=== PATIENT | female | born 1965 | race Caucasian/White ===

== ENCOUNTER 2016-07-17 19:09 | Emergency (ER) | payer OTHER ==
[~2016-07-17] VITALS: Ht 170.2 cm; Wt 114.1 kg
[~2016-07-17 19:09] MED LIST: AMOXICILLIN 50500 MG PO; ASPIRIN 81M81 MG/TA2 PO; ATARAX 25MG25 MG/TAB PO; BUDEPRION XL150 MG PO; LEXAPRO 10MG10 MG PO; LIPITOR 10MG10 MG PO; MULTIPLE VITAMI1 CAP PO; PREDNISONE20 MG PO; RITE AID KRILL500 MG PO; VALIUM 5MG T5 MG/TAB PO; ZITHROMAX TRI-500 MG PO
[2016-07-17 19:22] VITALS: BP 173/88; TEMP 98.5
[2016-07-17] MEDS ORDERED: ZOCOR 40MG40 MG PO (20:04)
[2016-07-17] MEDS ORDERED: ZYRTEC 10MG10 MG PO (20:04)
[2016-07-17 20:20] LABS: INFLUENZA B NEGATIVE
[2016-07-17] MEDS ORDERED: ZITHROMAX 250M250 MG PO (20:42)
[2016-07-17 20:51] VITALS: PULSE 73
== END 2016-07-17 20:51 | disposition home or self-care (01) ==
LOC: COL.ER 19:09
PROVIDERS: Nurse Practitioner
DX: J20.9 Acute bronchitis, unspecified (principal); F17.210 Nicotine dependence, cigarettes, uncomplicated

== ENCOUNTER 2016-08-05 13:28 | Emergency (ER) | payer OTHER ==
[~2016-08-05] VITALS: Ht 170.2 cm; Wt 112.3 kg
[~2016-08-05 13:28] MED LIST changes: +ZITHROMAX 250M250 MG PO; +ZOCOR 40MG40 MG PO; +ZYRTEC 10MG10 MG PO
[2016-08-05 13:31] VITALS: BP 172/91; PULSE 86; TEMP 98.1
== END 2016-08-05 15:07 | disposition home or self-care (01) ==
LOC: COL.ER 13:28
DX: S29.012A Strain of muscle and tendon of back wall of thorax, initial encounter (principal); W51.XXXA Accidental striking against or bumped into by another person, initial encounter

== ENCOUNTER → 2017-03-25 | Outpatient (CLI) | payer OTHER | LOC: MC.RAD 14:46 | DX: Z12.31 Encounter for screening mammogram for malignant neoplasm of breast (principal) ==

== ENCOUNTER → 2018-04-11 | Outpatient (CLI) | payer OTHER | LOC: MC.RAD 03-31 09:00 | DX: Z12.31 Encounter for screening mammogram for malignant neoplasm of breast (principal) ==

== ENCOUNTER → 2019-05-15 | Outpatient (CLI) | payer OTHER | LOC: MC.RAD 15:54 | DX: Z12.31 Encounter for screening mammogram for malignant neoplasm of breast (principal) ==

== ENCOUNTER 2019-07-14 13:31 | Observation (INO) | payer OTHER ==
[~2019-07-14] VITALS: Ht 170.2 cm; Wt 120.0 kg
[2019-07-14 14:47] LABS: BASO % 0.4 % (0.0-2.0); EOS # 0.2 (0.0-0.7); GRAN # 6.1 (1.4-6.5); GRAN % 65.8 % (42.2-75.2); HEMATOCRIT 46.3 % (37.0-47.0); HEMOGLOBIN 15.4 g/dl (12.5-16.0); LYMPH # 2.5 (1.2-3.4); LYMPH % 26.7 % (20.0-51.0); MEAN CELL VOLUME 85 fl (80.0-100.0); MEAN CORPUSCULAR HEMOGLOBIN 28 pg (27.0-31.0); MEAN CORPUSCULAR HGB CONC 33 g/dl (33.0-37.0); MEAN PLATELET VOLUME 9.8 fl (7.4-10.4); MONO # 0.5 (0.1-0.6); MONO % 4.9 % (1.7-9.3); PLATELET COUNT 250 K/mm3 (130-400); RED BLOOD COUNT 5.43 M/mm3 (4.10-5.30); REDCELL DISTRIBUTION WIDTH-CV 12.4 % (11.5-14.5)
[2019-07-14 14:58] LABS: INR 0.9 (0.8-3.0); PROTHROMBIN TIME 10.8 SECONDS (9.7-12.8)
[2019-07-14 14:59] LABS: ALANINE AMINOTRANSFERASE 24 U/L (9-52); ALBUMIN 4.5 gm/dL (3.5-5.0); ALKALINE PHOSPHATASE 75 U/L (50-136); ANION GAP 9 mmol/L (7-16); AST,SGOT 25 U/L (15-37); BILIRUBIN,TOTAL 0.5 mg/dL (0.0-1.0); BLOOD UREA NITROGEN 18 mg/dL (7-17); C-REACTIVE PROTEIN 0.6 mg/dL (0.0-0.9); CALCIUM 9.7 mg/dL (8.4-10.2); CARBON DIOXIDE 27 mmol/L (22-30); CHLORIDE 103 mmol/L (98-107); CREATININE, serum 0.68 (0.52-1.25); GLUCOSE 123 mg/dL (74-106); LIPASE 97 U/L (23-300); POTASSIUM 4.2 mmol/L (3.4-5.0); SODIUM 139 mmol/L (137-145); TOTAL PROTEIN 7.5 gm/dL (6.4-8.2)
[2019-07-14 15:01] LABS: PARTIAL THROMBOPLASTIN TIME 26.2 SECONDS (26.0-37.0)
[2019-07-14 15:24] LABS: TROPONIN-I < 0.012 ng/mL (0.000-0.035)
[2019-07-14 15:33] LABS: D-DIMER < 200.00 ng/mLDDu (200-230)
[2019-07-14 17:46] VITALS: BP 128/72; PULSE 69; TEMP 98.1
--- NOTE | 2019-07-14 18:32 | NUR ---
Pt up to room 351 w/ family at bedside. Meds, allergies, pharmacy and admission all completed. Pt is A&O, independent in room, on room air, tele. Pt has RAC INT IV that flushes w/o complications. Pt denies dizziness, chest pain, N/V/D, lightheadedness at this time. Hospitalist aware of pt arrival to floor. Pt states she doesn't take any home meds at this time. No other concerns noted at this time.
--- NOTE | 2019-07-14 19:10 | NUR ---
Received report from Kathryn. Patient is awake, lying on bed. Patient denies any pain. Kathryn informed patient that she will start IVF, NS at 75ml/hr. Call light within reach.
[2019-07-14 19:32] VITALS: BP 135/70; PULSE 62; TEMP 98.2
[2019-07-14 23:52] VITALS: BP 141/97; PULSE 73; TEMP 97.8
[2019-07-15 04:30] VITALS: BP 151/61; PULSE 64; TEMP 98.6
--- NOTE | 2019-07-15 06:16 | NUR ---
Patient has an uneventful night. She denies any pain for the whole shift. Will endorse patient to day shift nurse.
[2019-07-15 07:38] VITALS: BP 138/74; PULSE 66; TEMP 98.2
[2019-07-15 08:39] LABS: ANION GAP 8 mmol/L (7-16); BLOOD UREA NITROGEN 14 mg/dL (7-17); CALCIUM 9.1 mg/dL (8.4-10.2); CARBON DIOXIDE 25 mmol/L (22-30); CHLORIDE 109 mmol/L (98-107); CHOLESTEROL 188 mg/dL (120-200); CHOLESTEROL RISK RATIO 4.4; CREATININE, serum 0.63 (0.52-1.25); GLUCOSE 106 mg/dL (74-106); HDL CHOLESTEROL 42 mg/dL; LDL CHOLESTEROL 127 mg/dL; POTASSIUM 4.3 mmol/L (3.4-5.0); SODIUM 141 mmol/L (137-145); TRIGLYCERIDE 93 mg/dL
[2019-07-15 08:56] LABS: TROPONIN-I < 0.012 ng/mL (0.000-0.035)
--- NOTE | 2019-07-15 09:27 | NUR ---
Patient lives at home with her (Manas Noland [phone]) in [place], [place] and plans to return home upon recovery. Patient is independent with daily living activities and has no anticipated needs for durable medical equipment at this time. Patient's primary care physician is Tawana Gupta, her [facility] is [facility], and she does not have advance directives for healthcare completed at this time. Patient is a full-time Bilingual Hr Generalist at a local [employer] and has been a smoker since she was 12 years old. No further needs at this time and social services manager will follow as needed.
--- NOTE | 2019-07-15 11:18 | NUR ---
Patient sitting up in chair upon assessment. Denies any pain or discomfort at this time. States plan is for her to go home today. Confirmed discharge with Dr. Garcia who put discharge order in. Tele leads and IV removed as IV was irritating to patient. No further questions or concerns from patient at this time.
--- NOTE | 2019-07-15 12:11 | NUR ---
Patient discharged to home accompanied by her . All discharge instructions reviewed. Patient had ECHO completed this morning that will be reviewed with Dr. Fagan outpatient. Patient has his office number to ensure appointment is made. Patient will follow up with PCP in 1 week. Patient has no home medications and is not going home on any new medications. Patient and have no questions regarding discharge at this time. Patient walked out by this communications writer.
== END 2019-07-15 12:13 | disposition home or self-care (01) ==
LOC: COL.ER 13:31 → MEDICAL 15:51
PROVIDERS: Emergency Medicine; ADMIT Hospitalist
DX: R55 Syncope and collapse (principal); E78.5 Hyperlipidemia, unspecified; I10 Essential (primary) hypertension; E66.01 Morbid (severe) obesity due to excess calories; F17.210 Nicotine dependence, cigarettes, uncomplicated; R73.03 Prediabetes; Z88.1 Allergy status to other antibiotic agents; Z88.6 Allergy status to analgesic agent
CPT/HCPCS: G0378; J1650; J7030

== ENCOUNTER → 2020-02-15 | Outpatient (CLI) | payer OTHER ==
[~2020-02-15] VITALS: Ht 170.2 cm; Wt 123.0 kg
[~2020-02-15] MED LIST changes: +CLARITIN 1010 MG/TAB PO; +MASON NATURAL S1 CAP PO; +OMEGA-3 1000 MG1 CAP PO; +ZOCOR 10MG10 MG PO
[2020-02-15 13:22] VITALS: BP 172/96; PULSE 79
== END ==
LOC: COL.RAD 02-12 09:00
DX: E04.1 Nontoxic single thyroid nodule (principal)

== ENCOUNTER → 2020-06-03 | Outpatient (CLI) | payer OTHER | LOC: MC.RAD 05-16 07:00 | DX: Z12.31 Encounter for screening mammogram for malignant neoplasm of breast (principal) ==

== ENCOUNTER 2020-10-26 09:58 | Emergency (ER) | payer OTHER ==
[~2020-10-26] VITALS: Ht 170.2 cm; Wt 124.5 kg
[2020-10-26 10:04] VITALS: TEMP 98.4
[2020-10-26 11:55] VITALS: BP 148/87; PULSE 80
== END 2020-10-26 12:00 | disposition home or self-care (01) ==
LOC: COL.ER 09:58
DX: M25.511 Pain in right shoulder (principal); E78.5 Hyperlipidemia, unspecified; E66.01 Morbid (severe) obesity due to excess calories; F17.210 Nicotine dependence, cigarettes, uncomplicated; Z68.41 Body mass index [BMI] 40.0-44.9, adult
CPT/HCPCS: J1885; J2360

== ENCOUNTER → 2021-06-02 | Outpatient (CLI) | payer OTHER | LOC: COL.RAD 05-26 13:30 | DX: Z12.2 Encounter for screening for malignant neoplasm of respiratory organs (principal); R91.8 Other nonspecific abnormal finding of lung field; Z72.0 Tobacco use ==

== ENCOUNTER → 2021-06-23 | Outpatient (CLI) | payer OTHER | LOC: MC.RAD 10:24 | DX: Z12.31 Encounter for screening mammogram for malignant neoplasm of breast (principal) ==

== ENCOUNTER 2022-02-27 22:15 | Emergency (ER) | payer OTHER ==
[~2022-02-27] VITALS: Ht 172.7 cm; Wt 122.7 kg
[2022-02-27] MEDS ORDERED: NORCO 325 MG-51 TAB PO (23:33)
[2022-02-27 23:42] VITALS: BP 156/78; PULSE 85
== END 2022-02-27 23:42 | disposition home or self-care (01) ==
LOC: COL.ER 22:15
DX: S49.91XA Unspecified injury of right shoulder and upper arm, initial encounter (principal); F17.210 Nicotine dependence, cigarettes, uncomplicated; X58.XXXA Exposure to other specified factors, initial encounter

== ENCOUNTER → 2022-07-29 | Outpatient (CLI) | payer OTHER ==
[~2022-07-29] MED LIST changes: +NORCO 325 MG-51 TAB PO
== END ==
LOC: MC.RAD 10:34
DX: Z12.31 Encounter for screening mammogram for malignant neoplasm of breast (principal)

== ENCOUNTER → 2023-08-24 | Outpatient (CLI) | payer OTHER | LOC: MC.RAD 12:52 | DX: Z12.31 Encounter for screening mammogram for malignant neoplasm of breast (principal) ==

== ENCOUNTER → 2023-09-26 | Outpatient (CLI) | payer OTHER | LOC: COL.RAD 08:45 | DX: Z12.2 Encounter for screening for malignant neoplasm of respiratory organs (principal); Z87.891 Personal history of nicotine dependence ==

== ENCOUNTER → 2023-10-04 | Outpatient (CLI) | payer OTHER ==
[~2023-10-04] MED LIST changes: +Albuterol 0.083% Neb Soln 2.5 MG/3 ML UD IH ONE; +Methacholine Vial A (Clear Label Base-Cntrl) IH ONE; +Methacholine Vial B (Red Label) 0.0625 MG/ML 3 ML VIAL.NEB IH ONE; +Methacholine Vial C (Orange Label) 0.25 MG/ML 3 ML VIAL.NEB IH ONE; +Methacholine Vial D (Yellow Label) 1 MG/ML 3 ML VIAL.NEB IH ONE; +Methacholine Vial E (Green Label) 4 MG/ML 3 ML VIAL.NEB IH ONE; +Methacholine Vial F (Blue Label) 16 MG/ML 3 ML VIAL.NEB IH ONE
== END ==
LOC: COL.CARD 07:23
DX: R91.1 Solitary pulmonary nodule (principal)
CPT/HCPCS: J7674